=== PATIENT | female | born 1985 | race Caucasian/White ===

== ENCOUNTER 2020-05-23 10:58 | Emergency (ER) | payer MEDICAID ==
[~2020-05-23] VITALS: Ht 157.5 cm; Wt 59.0 kg
[~2020-05-23 10:58] MED LIST: GUAI600T45 PO; ONDA4TAB12 PO
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
--- NOTE | 2020-05-23 13:17 | NUR ---
PT TO CT
[2020-05-23] MEDS ORDERED: CEPH500C5 PO (13:34)
[2020-05-23] MEDS ORDERED: ibuprofen tablet 400 MG TABLET PO ONE (13:35)
--- NOTE | 2020-05-23 14:20 | NUR ---
PT STILLS SAYING SHE FELL, REFUSING TO LET US CLEAN HER FACE, PT DID SAY SHE WAS STAYING WITH A FRIEND TODAY
[2020-05-23 14:33] VITALS: BP 122/84
== END 2020-05-23 14:25 | disposition home or self-care (01) ==
LOC: ER 10:59
DX: S01.511A Laceration without foreign body of lip, initial encounter (principal); S50.12XA Contusion of left forearm, initial encounter; S50.11XA Contusion of right forearm, initial encounter; K21.9 Gastro-esophageal reflux disease without esophagitis; Z90.49 Acquired absence of other specified parts of digestive tract; Z98.890 Other specified postprocedural states; Z72.89 Other problems related to lifestyle; Z56.0 Unemployment, unspecified; Z79.899 Other long term (current) drug therapy; Y04.8XXA Assault by other bodily force, initial encounter; Y93.89 Activity, other specified; Y92.89 Other specified places as the place of occurrence of the external cause; Y99.8 Other external cause status
CPT/HCPCS: 70450; 70486; 99285

== ENCOUNTER 2021-05-07 15:46 | Emergency (ER) | payer MEDICAID ==
[~2021-05-07] VITALS: Ht 160 cm; Wt 50.8 kg
[2021-05-07 16:20] VITALS: BP 140/80
[2021-05-07] MEDS ORDERED: PENI250T2 PO (16:24)
[2021-05-07] MEDS ORDERED: NAPR-56 PO (16:24)
== END 2021-05-07 16:38 | disposition home or self-care (01) ==
LOC: ER 15:47
DX: K02.9 Dental caries, unspecified (principal); K04.7 Periapical abscess without sinus; R22.0 Localized swelling, mass and lump, head; K21.9 Gastro-esophageal reflux disease without esophagitis; Z90.49 Acquired absence of other specified parts of digestive tract; Z98.890 Other specified postprocedural states; Z72.89 Other problems related to lifestyle; Z56.0 Unemployment, unspecified; Z79.2 Long term (current) use of antibiotics; Z79.899 Other long term (current) drug therapy
CPT/HCPCS: 99283

== ENCOUNTER 2021-07-06 12:45 | Emergency (ER) | payer MEDICAID ==
[~2021-07-06] VITALS: Ht 160 cm; Wt 54.5 kg
[2021-07-06 13:04] VITALS: BP 136/90
[2021-07-06] MEDS ORDERED: ondansetron 4mg rapidly disintigrating tab PO ONE (13:10)
[2021-07-06] MEDS ORDERED: BENZ-38 PO (13:10)
[2021-07-06] MEDS ORDERED: ONDA4TAB6 PO (13:10)
[2021-07-06] MEDS ORDERED: ALBU8HFA PO (13:10)
== END 2021-07-06 13:55 | disposition home or self-care (01) ==
LOC: ER 12:46
DX: J06.9 Acute upper respiratory infection, unspecified (principal); Z20.822 Contact with and (suspected) exposure to COVID-19; K21.9 Gastro-esophageal reflux disease without esophagitis; Z56.0 Unemployment, unspecified; Z79.899 Other long term (current) drug therapy
CPT/HCPCS: 87635; 99283; C9803

== ENCOUNTER 2021-09-16 16:14 | Emergency (ER) | payer MEDICAID ==
[~2021-09-16] VITALS: Ht 160 cm; Wt 54.5 kg
[~2021-09-16 16:14] MED LIST changes: +ONDA4TAB6 PO
--- NOTE | 2021-09-16 17:47 | NUR ---
NOT IN RAP
[2021-09-16 18:12] VITALS: BP 141/81
[2021-09-16] MEDS ORDERED: ONDA-104 PO (19:58)
[2021-09-16] MEDS ORDERED: ondansetron 4mg rapidly disintigrating tab PO ONE (20:00)
== END 2021-09-16 20:16 | disposition home or self-care (01) ==
LOC: ER 16:15
DX: R11.2 Nausea with vomiting, unspecified (principal); R05.9 Cough, unspecified; R09.89 Other specified symptoms and signs involving the circulatory and respiratory systems; Z20.822 Contact with and (suspected) exposure to COVID-19
CPT/HCPCS: 87635; 99283; C9803

== ENCOUNTER 2022-01-21 17:03 | Emergency (ER) | payer MEDICAID ==
[~2022-01-21] VITALS: Ht 160 cm; Wt 56.8 kg
[~2022-01-21 17:03] MED LIST changes: +ONDA-104 PO
[2022-01-21 17:05] VITALS: BP 133/75
[2022-01-21] MEDS ORDERED: ketorolac tromethamine 15mg/ml inj. IM ONE (17:35)
[2022-01-21] MEDS ORDERED: dexamethasone sod phosphate 10mg/ml inj IM STA (17:35)
[2022-01-21] MEDS ORDERED: PRED20TA PO (17:38)
[2022-01-21] MEDS ORDERED: GUAI120L55 PO (17:38)
== END 2022-01-21 18:13 | disposition home or self-care (01) ==
LOC: ER 17:04
DX: J06.9 Acute upper respiratory infection, unspecified (principal); K21.9 Gastro-esophageal reflux disease without esophagitis; Z79.899 Other long term (current) drug therapy; Z79.82 Long term (current) use of aspirin
CPT/HCPCS: 96372; 99284; J1100; J1885

== ENCOUNTER 2024-05-14 08:58 | Emergency (ER) | payer MEDICAID ==
[~2024-05-14] VITALS: Ht 160 cm; Wt 59.8 kg
[~2024-05-14 08:58] MED LIST changes: +GUAI120L55 PO; +ONDA-243 PO; -ONDA4TAB12 PO
[2024-05-14] MEDS: ondansetron/PF 4mg/2ml inj IV ONE (09:41)
[2024-05-14] MEDS: ketorolac trometh 30MG/ML vial 30 MG/ML VIAL IV ONE (09:42)
[2024-05-14] MEDS: normal saline 1000ml 1,000 ML IV ONE (09:42)
[2024-05-14] MEDS: carbamide peroxide 15ml bottle RIGHT EAR SCH (10:48)
[2024-05-14 11:50] VITALS: BP 138/97; PULSE 65; RESP 15; TEMP 98.4; O2SAT 98
== END 2024-05-14 11:52 | disposition home or self-care (01) ==
LOC: ER 08:59
DX: A08.4 Viral intestinal infection, unspecified (principal); H61.21 Impacted cerumen, right ear; K21.9 Gastro-esophageal reflux disease without esophagitis; G43.909 Migraine, unspecified, not intractable, without status migrainosus; Z79.899 Other long term (current) drug therapy; Z90.49 Acquired absence of other specified parts of digestive tract; Z98.890 Other specified postprocedural states
CPT/HCPCS: 96361; 96374; 96375; 99284; J1885; J2405; J7030

== ENCOUNTER 2025-05-18 12:58 | Emergency (ER) | payer MEDICAID ==
[~2025-05-18] VITALS: Ht 160 cm; Wt 61.5 kg
[2025-05-18 13:16] VITALS: BP 190/91; PULSE 60; RESP 18; TEMP 97.5; O2SAT 98
--- NOTE | 2025-05-18 13:26 | Physician Documentation ---
History of Present Illness ~ Chief Complaint: Flank Pain Stated Complaint: KIDNEY PAIN Time Seen by MD: 15:51 Primary Medical Doctor: none HPI This is a 40-year-old female who presents with two days of bilateral flank pain, dysuria, and urinary frequency. Patient reports no fevers. Reports history of frequent UTIs and treatment for possible kidney stones earlier in the month. Medication Reconciliation Allergies: Coded Allergies: No Known Allergies (Unverified , 05/18/25) Scheduled Ondansetron HCl (Ondansetron HCl), 1 TAB PO Q8H Ondansetron Hcl (Zofran), 1 TAB PO Q6H Scheduled PRN Guaifenesin (Mucinex), 600 MG PO BID PRN for cough Guaifenesin/Codeine Phosphate (Codeine-Guaifen 10-100 mg/5 ml), 10-May ML PO Q4H PRN for cough and congestion ONDANSETRON ODT 4mg tablet (Ondansetron Odt), 1 TABLET PO Q6H PRN for nausea/vomiting Past Medical History Past Medical History: GERD, UTI Past Surgical History: cholecystectomy, Alcohol Use: Sober Drug Use: none Lives with: S/O Lives In: Home Occupation: unemployed Review of Systems ROS As stated above in the HPI, otherwise all systems are reviewed and negative. Physical Exam Vital Signs: Temperature: 97.5, Source: Temporal, Heart Rate: 60, Respiratory Rate: 18, BP: 190/91, Pulse Oximetry: 98, Weight: 61.500 Oxygen Flow Rate: 0 Physical Exam VITALS: Reviewed and as above. GENERAL: Alert, nontoxic appearing, no apparent distress. RESPIRATORY: No increased work of breathing, no respiratory distress, speaking in full clear sentences BACK: No CVA tenderness Progress Results/Orders Results/Orders Vital Signs 05/18/25 13:16 Temp 97.5 Pulse 60 Resp 18 B/P (MAP) 190/91 Pulse Ox 98 O2 Flow Rate 0 Laboratory Tests Test 05/18/25 13:19 05/18/25 13:28 Urine Specimen Description Cln catch midstream Urine Color Yellow Urine Clarity Clear Urine pH 6.0 Urine Specific [place] 1.010 Urine Protein Negative Urine Glucose (UA) Negative Urine Ketones Negative Urine Occult Blood Negative Urine Nitrite Negative Urine Bilirubin Negative Urine Urobilinogen 0.2 Urine Leukocyte Esterase Negative Urine Culture Indicated Not ind Volume Urine Centrifuged 10 ml Urine HCG, Qualitative Negative Urine Comment White Blood Count 7.4 Red Blood Count 4.30 Hemoglobin 12.9 Hematocrit 38.1 Mean Corpuscular Volume 88.4 Mean Corpuscular Hemoglobin 30.0 Mean Corpuscular Hemoglobin Concent 34.0 Red Cell Distribution Width 12.9 Platelet Count 327 Mean Platelet Volume 7.0 L Neutrophils (%) (Auto) 58.4 Lymphocytes (%) (Auto) 27.4 Monocytes (%) (Auto) 10.6 Eosinophils (%) (Auto) 2.9 Basophils (%) (Auto) 0.7 Neutrophils # (Auto) 4.3 Lymphocytes # (Auto) 2.0 Monocytes # (Auto) 0.8 Eosinophils # (Auto) 0.2 Basophils # (Auto) 0.1 CBC Comment Sodium Level 137 Potassium Level 3.8 Chloride Level 103 Carbon Dioxide Level 23.5 L Anion Gap 11 Blood Urea Nitrogen 11 Creatinine 0.70 Estimated GFR/1.73 m2 > 90 BUN/Creatinine Ratio 15.7 Glucose Level 91 Calcium Level 8.3 L Total Bilirubin 0.8 Aspartate Amino Transf (AST/SGOT) 55 H Alanine Aminotransferase (ALT/SGPT) 33 Alkaline Phosphatase 81 Total Protein 7.9 Albumin 3.8 Globulin 4.1 Albumin/Globulin Ratio 0.9 L Lipase 84 H Chemistry Comments Medical Decision Making Additional information obtaine: N/A Findings MSE performed in triage and patient returned to ED lobby by nursing staff to await available ED room. Patient appears to have eloped from lobby Diff Dx GI Bleed:Consideration: Include: Gastritis, Gastroenteritis, Inflammatory BD Diff Dx Pain:Considerations: Include: Aortic dissection, Bowel obstruction, Cholangitis, Cholecystitis, Ectopic , Inflammatory BD, Ischemic bowel, Mass, Ovarian cyst/torsion, Urinary obstruction, Urinary tract infection, Urolithiasis, Other (pyeloneprhritis) Diff Dx N/V/D:Considerations: Include: Appendicitis Diff Dx Rectal:Considerations: Unlikely: Fissure, Fistula, Foreign body, Impaction, Perirectal abscess, Rectal prolapse, Subcutaneous abscess, Thrombosed hemorrhoid, Ulcer, UTI, Other Departure Disposition: HOME / SELF CARE / HOMELESS Impression: Primary Impression: Flank pain Qualified Codes: R10.A3 - Flank pain, bilateral Referrals: NO PRIMARY CARE PROVIDER (PCP) Signature Scribe Signature: No Scribe Attestation: The note accurately reflects work and decisions made by me.ANETTE Hogan 05/18/25 20:00 Parts of this note were created using [employer] voice recognition software program. While efforts were made to correct any mistakes made by this voice recognition software program, nonsensical phrases may remain in this note. In addition, there may be errors and syntax, grammar, content and spelling. DIANNE HURTADO May 18, 2025 13:26
[2025-05-18 13:44] LABS: URINE HCG NEGATIVE (NEG)
[2025-05-18 13:45] LABS: LEUKOCYTE ESTERASE ,URINE NEGATIVE (Neg); NITRITES, URINE NEGATIVE (Neg); OCCULT BLOOD,URINE NEGATIVE (Neg)
[2025-05-18 13:47] LABS: UA COLLECTION TYPE CLN CATCH MIDSTREAM
[2025-05-18 13:48] LABS: MEAN PLATELET VOLUME 7.0 FL (7.4-10.4); RED CELL DISTRIBUTION WIDTH 12.9 % (11.5-14.5)
[2025-05-18 13:56] LABS: CREATININE 0.70 MG/DL (0.40-0.90); TOTAL CARBON DIOXIDE 23.5 MMOL/L (24-32); eCRCL 87 ML/MIN; eGFR > 90 ML/MIN
== END 2025-05-18 17:39 | disposition left against medical advice (07) ==
LOC: ER 12:58
DX: R10.A3 Flank pain, bilateral (principal); K21.9 Gastro-esophageal reflux disease without esophagitis; Z56.0 Unemployment, unspecified; Z90.49 Acquired absence of other specified parts of digestive tract; Z87.442 Personal history of urinary calculi; Z87.440 Personal history of urinary (tract) infections; Z79.899 Other long term (current) drug therapy; Z98.890 Other specified postprocedural states
CPT/HCPCS: 36415; 80053; 81003; 81025; 83690; 85025; 99283